=== PATIENT | male | born 1960 | race Two or more races ===

== ENCOUNTER 2017-05-05 22:02 | Emergency (ER) | payer OTHER ==
[~2017-05-05] VITALS: Ht 294.6 cm; Wt 93.0 kg
[2017-05-05 22:35] VITALS: BP 120/65
[2017-05-05] MEDS: ACETAMINOPHEN 500 MG TAB PO ONE ×2 (22:58→23:01)
[2017-05-05 22:59] LABS: Basophils # (auto) 0 uL; Basophils % (auto) 0.5 % (0.0-2.0); CONDITION Y; Eosinophils # (auto) 0 uL; Hematocrit 46.5 % (41.0-53.0); Hemoglobin 15.9 g/dL (13.5-17.5); Lymphocytes # (auto) 1.2 uL; Lymphocytes % (auto) 12.7 % (10.0-50.0); Mean Corpuscular Hemoglobin 32.5 pg (28.0-32.0); Mean Corpuscular Hgb Conc. 34.2 g/dL (32.0-36.0); Mean Corpuscular Volume 94.9 fL (80.0-100.0); Mean Platelet Volume 8.4 fL (7.4-10.4); Monocytes % (auto) 10.1 % (0.0-12.0); Neutrophils # (auto) 7.4 uL; Neutrophils % (auto) 76.7 % (37.0-80.0); Platelet Count (auto) 221 10^3/uL (140-450); Red Cell Distribution Width 12.5 % (11.6-16.0); White Blood Cell 9.7 10^3/uL (4.4-10.8)
[2017-05-05] MEDS ORDERED: IBUPROFEN 600 MG TAB PO ONE (23:00)
[2017-05-05 23:26] LABS: Albumin 3.8 g/dL (3.4-5.0); BUN/Creatinine Ratio 14.1; Calcium 8.7 mg/dL (8.5-10.1); Potassium 3.6 mmol/L (3.5-5.1)
[2017-05-05 23:29] LABS: Bilirubin, Total 0.8 mg/dL (0.2-1.0); Total Protein 7.6 g/dL (6.4-8.2)
[2017-05-06] MEDS ORDERED: cefTRIAXone SOD 1,000 MG VL ONE (01:28)
[2017-05-06] MEDS ORDERED: cefTRIAXone SOD 1,000 MG VL IM ONE (01:30)
== END 2017-05-06 01:46 ==
LOC: ER 22:10
DX: J40 Bronchitis, not specified as acute or chronic (principal); I27.2 Other secondary pulmonary hypertension; R50.9 Fever, unspecified
CPT/HCPCS: 36415; 71010; 74176; 80053; 82150; 83690; 85025; 96372; 99285; J0696